=== PATIENT | male | born 1960 | race Caucasian/White ===

== ENCOUNTER → 2016-06-09 | Outpatient (CLI) | payer BC ==
[~2016-06-09] VITALS: Ht 180.3 cm; Wt 108.9 kg
[~2016-06-09] MED LIST: ATEN50TA9 PO; LIDOCAINE 2% INJ 100 MG/5 ML SDV (FOR ANES.) As Ordered ONE; LOTR10CA PO; NS 1,000 ML IV SCH; PROPOFOL 200 MG/20 ML VIAL As Ordered ONE; VIAG100T PO
--- NOTE | 2016-06-09 11:16 | ROOR ---
Patient Name: Giovanni Lei Procedure Date: 06/09/2016 10:47 AM Date of : 1960 Age: 55 Room: OPP Gender: Male Note Status: Finalized Procedure: Colonoscopy Indications: High risk colon cancer surveillance: Personal history of colonic polyps, Family history of colon cancer in a first-degree relative (Brother age 48) Providers: Gabino RODRIGUEZ MD Referring MD: MENDOZA ARROYO MD Requesting Provider: Medicines: Monitored Anesthesia Care Complications: No immediate complications. Procedure: Pre-Anesthesia Assessment: - The heart rate, respiratory rate, oxygen saturations, blood pressure, adequacy of pulmonary ventilation, and response to care were monitored throughout the procedure. The Colonoscope was introduced through the anus and advanced to the cecum, identified by appendiceal orifice and ileocecal valve. The colonoscopy was performed without difficulty. The patient tolerated the procedure well. The quality of the bowel preparation was good. Findings: The perianal and digital rectal examinations were normal. (Digital prostate exam was normal, smooth prostate. No nodularity or firmness apreciated.) (Exam: Complete, Prep: Good or Excellent.) A 7 mm polyp was found in the sigmoid colon at 40 cm from verge. The polyp was semi-sessile. The polyp was removed with a hot snare. Resection and retrieval were complete. The exam was otherwise normal throughout the examined colon. Impression: - (Digital prostate exam was normal, smooth prostate. No nodularity or firmness apreciated.) - (Exam: Complete, Prep: Good or Excellent.) - One 7 mm polyp in the sigmoid colon, removed with a hot snare. Resected and retrieved. - The exam was otherwise normal to the cecum. Recommendation: - No ibuprofen, naproxen, or other non-steroidal anti-inflammatory drugs for 10 days after polyp removal. - Repeat colonoscopy in 3 years for surveillance. - Telephone endoscopist for pathology results in 2 weeks. Gabino Rodriguez MD Gabino RODRIGUEZ MD 06/09/2016 11:15:49 AM This report has been signed electronically. Number of Addenda: 0 Note Initiated On: 06/09/2016 10:47 AM Estimated Blood Loss: Estimated blood loss: none.
[2016-06-09 11:30] VITALS: BP 126/76
== END ==
LOC: M OPP 09:17
PROVIDERS: ATTEND Internal Medicine Gastroenterology
DX: Z12.11 Encounter for screening for malignant neoplasm of colon (principal); D12.5 Benign neoplasm of sigmoid colon; Z86.010 Personal history of colon polyps; I10 Essential (primary) hypertension; E78.5 Hyperlipidemia, unspecified; G47.30 Sleep apnea, unspecified; R06.83 Snoring; Z80.0 Family history of malignant neoplasm of digestive organs; Z80.3 Family history of malignant neoplasm of breast; Z80.1 Family history of malignant neoplasm of trachea, bronchus and lung; F17.220 Nicotine dependence, chewing tobacco, uncomplicated; Z79.899 Other long term (current) drug therapy

== ENCOUNTER → 2018-12-27 | Outpatient (CLI) | payer BC ==
[~2018-12-27] MED LIST changes: -LIDOCAINE 2% INJ 100 MG/5 ML SDV (FOR ANES.) As Ordered ONE; -NS 1,000 ML IV SCH; -PROPOFOL 200 MG/20 ML VIAL As Ordered ONE
--- NOTE | 2018-12-27 08:48 | ECGEPIP ---
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
== END ==
LOC: M EKG 08:17
PROVIDERS: ATTEND Orthopaedic Surgery
DX: Z01.810 Encounter for preprocedural cardiovascular examination (principal); M23.204 Derangement of unspecified medial meniscus due to old tear or injury, left knee

== ENCOUNTER → 2019-09-06 | Outpatient (CLI) | payer BC ==
[2019-09-06 09:39] LABS: HEMOGLOBIN 16.8 g/dl (13.5-17.5); MEAN CORPUSCULAR HEMOGLOBIN 35.4 pg (27.0-33.0); MEAN CORPUSCULAR VOLUME 101.1 fl (80.0-96.0); PLATELET COUNT, AUTOMATED 264 10^3/uL (150-450); RED BLOOD COUNT 4.75 10^6/uL (4.30-6.10); WHITE BLOOD COUNT 6.2 10^3/uL (4.0-10.0)
[2019-09-06 09:51] LABS: INR 1.03; PROTHROMBIN TIME 13.2 SECONDS (11.8-14.0)
[2019-09-06 10:19] LABS: ALBUMIN 3.6 GM/DL (3.2-5.2); ALT/SGPT 36 U/L (12-78); BILIRUBIN,TOTAL 0.7 MG/DL (0.2-1.0); BLOOD UREA NITROGEN 16 MG/DL (7-18); CALCIUM LEVEL 9.1 MG/DL (8.5-10.1); CARBON DIOXIDE LEVEL 30 MEQ/L (21-32); CHLORIDE LEVEL 100 MEQ/L (98-107); CREATININE FOR GFR 1.04 MG/DL (0.70-1.30); GLOMERULAR FILTRATION RATE > 60.0 (>56); GLUCOSE, FASTING 93 MG/DL (70-100); POTASSIUM SERUM 4.3 MEQ/L (3.5-5.1); SODIUM LEVEL 136 MEQ/L (136-145); TOTAL PROTEIN 7.4 GM/DL (6.4-8.2)
[2019-09-06 10:31] LABS: ERYTHROCYTE SEDIMENTATION RATE 11 mm/hr (0-20)
--- NOTE | 2019-09-06 10:32 | ECGEPIP ---
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 No significant change compared with 12/27/2018. Electronically Signed on 09-06-2019 10:31:36 EDT by Gabino Vera
--- NOTE | 2019-09-06 11:41 | REP ---
REASON: Preoperative evaluation. Latest prior for comparison is 07/28/2008 Multiple healed left-sided rib fractures are noted. There is left CP angle blunting which has developed since the last exam. The lung kenyon are otherwise clear and the heart is not enlarged. IMPRESSION: New left CP angle blunting. Etiology uncertain. CT chest recommended. Electronically Signed by Nino Pantoja DO 09/06/2019 12:12 P
== END ==
LOC: M LAB 08:45
PROVIDERS: ATTEND Orthopaedic Surgery
DX: M16.12 Unilateral primary osteoarthritis, left hip (principal)

== ENCOUNTER → 2019-10-18 | Outpatient (CLI) | payer BC ==
[~2019-10-18] MED LIST changes: +ACET-683 PO; +PERC5TAB12 PO; +XARE10TA PO
== END ==
LOC: M LABSMTC 11:04
PROVIDERS: ATTEND Anesthesiology
DX: Z01.818 Encounter for other preprocedural examination (principal); Z11.59 Encounter for screening for other viral diseases
CPT/HCPCS: C9803; U0003

== ENCOUNTER 2019-10-21 06:05 | Inpatient (IN) | payer BC ==
[2019-10-21] VITALS (7 sets, daily range): BP systolic 98–112; BP diastolic 57–69
[~2019-10-21] VITALS: Ht 180.3 cm; Wt 101.6 kg
[~2019-10-21 06:05] MED LIST changes: +LIDOCAINE 1% MDV 20ML VIAL SQ PRN; +LR 1,000 ML IV ONE; -PERC5TAB12 PO; -XARE10TA PO; +ceFAZolin SOD 2 GM in IV 1 EA IV ONE
[2019-10-21] MEDS ORDERED: ceFAZolin 1GM VIAL (J0690 PER 500MG) As Ordered ONE (07:20)
[2019-10-21] MEDS ORDERED: TRANEXAMIC ACID 100 MG/ML 10ML VIAL As Ordered ONE (07:20)
[2019-10-21] MEDS ORDERED: EPINEPHrine INJ 1 MG/ML 1ML AMP As Ordered ONE (07:21)
[2019-10-21] MEDS ORDERED: LIDOCAINE 2% INJ 100 MG/5 ML SYRINGE As Ordered ONE (07:21)
[2019-10-21] MEDS ORDERED: BUPIVACAINE LIPOSOME/PF 1.3% 20ML VIAL (13.3MG/ML)(EXPAREL)(C9290 PER1MG) As Ordered ONE (07:21)
[2019-10-21] MEDS ORDERED: MIDAZOLAM INJ 2MG/2ML VIAL (J2250 PER 1MG) As Ordered ONE ×3 (07:22→08:19)
[2019-10-21] MEDS ORDERED: fentaNYL 100 MCG/2 ML INJECTION (J3010) As Ordered ONE (07:22)
[2019-10-21] MEDS ORDERED: propofoL 200 MG/20 ML VIAL As Ordered ONE (08:05)
[2019-10-21] MEDS ORDERED: KETAMINE HCL 200 MG/20 ML VIAL As Ordered ONE (08:12)
[2019-10-21] MEDS ORDERED: ACETAMINOPHEN 1000MG 100ML IV BTL (OFIRMEV) (J0131 PER 10MG) As Ordered ONE (08:33)
[2019-10-21] MEDS ORDERED: PHENYLephrine HCL 500 MCG/5 ML (100MCG/ML) SYRINGE (J2370) As Ordered ONE (08:37)
[2019-10-21] MEDS ORDERED: ePHEDrine SULFATE 25 MG/5 ML(5MG/ML) SYRINGE As Ordered ONE (08:37)
[2019-10-21] MEDS ORDERED: ONDANSETRON 4MG/2ML VIAL As Ordered ONE (08:56)
[2019-10-21] MEDS ORDERED: ONDANSETRON 4MG/2ML VIAL IV PRN ×2 (10:00)
[2019-10-21] MEDS ORDERED: PERCOCET 5MG/325MG TAB PO PRN ×3 (10:00→16:30)
[2019-10-21] MEDS ORDERED: METOCLOPRAMIDE INJ 10MG/2ML VIAL (J2765 PER 1) IV PRN (10:00)
[2019-10-21] MEDS ORDERED: MORPHINE 2 MG/ML 1ML VIAL (J2270) IV PRN (10:00)
[2019-10-21] MEDS ORDERED: ACETAMINOPHEN TAB 650MG DOSE (2X325MG) PO PRN (10:00)
[2019-10-21] MEDS: LR 1,000 ML IV SCH (10:00)
[2019-10-21] MEDS ORDERED: fentaNYL 100 MCG/2 ML INJECTION (J3010) IV PRN (10:00)
[2019-10-21] MEDS ORDERED: MORPHINE 4 MG/ML 1ML VIAL/SYRINGE (J2270) IV PRN (10:00)
[2019-10-21] MEDS ORDERED: LR 1,000 ML IV SCH (10:00)
--- NOTE | 2019-10-21 11:12 | REP ---
LEFT HIP, THREE VIEWS: Three views of the left hip performed. Left hip prosthesis appears to be in good position. Osseous structures are intact and well aligned. Electronically Signed by Stepan Pope MD 10/22/2019 12:58 P
--- NOTE | 2019-10-21 11:46 | IPN ---
DATE: 10/21/2019 Patient seen and examined. He wishes to proceed with a left hip arthroplasty. He understands the nature of this, the risks of bleeding, infection, damage to nerves, vessels, persistent pain, wear loosening, dislocation, leg length inequality, blood clots, medical problems, , among others. A preop clearance was obtained.
[2019-10-21] MEDS ORDERED: NS 500 ML IV ONE (13:45)
[2019-10-21] MEDS ORDERED: MORPHINE 4 MG/ML 1ML VIAL/SYRINGE (J2270) IV ONE (13:45)
[2019-10-21] MEDS ORDERED: KETOROLAC 30 MG/ML 1ML VIAL IV ONE (14:45)
[2019-10-21] MEDS: ceFAZolin SOD 2 GM in IV 1 EA IV SCH (16:23)
[2019-10-21] MEDS: PERCOCET 5MG/325MG TAB PO PRN (19:04)
--- NOTE | 2019-10-21 21:28 | CR ---
DATE OF CONSULTATION: 10/21/2019 REFERRING PHYSICIAN: Reid Delvin MD REASON FOR CONSULTATION: Management of chronic medical problems. Left hip osteoarthritis. HISTORY OF PRESENTING ILLNESS: This is a 59-year-old male with history of hypertension status post left hip arthroplasty without postoperative complications admitted to [address] [place] [address]. Patient complains of 10/10 pain despite receiving two tablets of Percocet, described as sharp without any radiation. Patient otherwise denied any fever, chills, shortness of breath, chest pain, pressure, tightness, lightheadedness, near syncope, dysuria, urgency, frequency, changes in vision, rhinorrhea. Per nursing, patient has had no other issues since arriving on the floor. PAST MEDICAL HISTORY: Hypertension. PAST SURGICAL HISTORY: Hernia repair, left knee arthroscopy 2018, shoulder surgery 2009, left hip open reduction internal fixation (ORIF) 10/2019. HOME MEDICATIONS: - Lotrel 10/20 mg one tablet daily - atenolol/chlorthalidone 50/25 one tablet daily - Viagra 100 mg as needed ALLERGIES: No known drug allergies. HOSPITAL MEDICATIONS: - Xarelto 10 mg daily - cephazolin 2 grams IV every 8 hours - Lactated Ringers (LR) 70 mL/hour - morphine 2 mg IV every 2 hours as needed for pain 4 to 7/10, 3 mg IV every 2 hours as needed for pain 8 to 10/10 - Percocet two tablets every 6 hours as needed - Zofran 4 mg IV every 6 hours as needed - acetaminophen 650 every 4 hours as needed for pain of 1 to 4/10 SOCIAL HISTORY: Patient is a nonsmoker, drinks about four beers a week. He is . 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 FAMILY HISTORY: Father with coronary artery disease (CAD), osteoarthritis, hypertension. Mother with hypertension. REVIEW OF SYSTEMS: Per history of present illness (HPI). 12-point system otherwise negative. PHYSICAL EXAMINATION: Temperature 97.5, pulse 57, respiratory rate 15, blood pressure 107/64, 100% on room air. Generally: Patient is awake, alert, oriented to person, place, and time, answering questions appropriately. He appears distressed due to severe pain, otherwise no pallor or cyanosis. No use of respiratory accessory muscles. No jugular venous distention (JVD) or thyromegaly. Lungs: Clear to auscultation. No wheezing, rales, or rhonchi. Heart: S1, S2, sinus rhythm. No murmurs, rubs, or gallops. Abdomen: Soft, nontender, nondistended. Positive bowel sounds. Extremities: Postoperative left hip with dressing intact. Skin: Warm, dry, well-perfused, pink in color. Patient has no changes in sensation. Limited range of motion of left lower extremity due to severe pain. LABORATORY DATA: 09/06/2019 CBC and metabolic panel have been reviewed. ASSESSMENT AND PLAN: This is a 59-year-old male with history of hypertension: 1. Status post left hip open reduction internal fixation (ORIF) due to severe osteoarthritis currently on Xarelto for deep venous thrombosis (DVT) prophylaxis. Blood pressure medications have not been resumed due to persistent low blood pressure with systolic pressure of 98-109 systolic. Patient is currently on IV morphine as needed for breakthrough pain and oral Percocet two tablets managed by orthopaedic surgery. On bowel regimen as well and deep venous thrombosis (DVT) prophylaxis. 2. Hypertension. Currently with low blood pressure. Will not resume patient's blood pressure medications. MTDD
[2019-10-22] MEDS: LR 1,000 ML IV SCH (00:18)
[2019-10-22] MEDS: ceFAZolin SOD 2 GM in IV 1 EA IV SCH (00:26)
[2019-10-22] MEDS: PERCOCET 5MG/325MG TAB PO PRN ×3 (00:27→12:15)
[2019-10-22 02:05] VITALS: BP 101/57
[2019-10-22 05:44] VITALS: BP 107/61
[2019-10-22] MEDS ORDERED: XARE10TA PO (06:42)
[2019-10-22] MEDS ORDERED: PERC5TAB12 PO (06:42)
[2019-10-22 09:00] VITALS: O2SAT 94
[2019-10-22] MEDS ORDERED: MOM 30ML SUSPENSION UDC PO SCH (09:00)
[2019-10-22] MEDS ORDERED: MIRALAX *UNIT DOSE* 17GM PACKET PO SCH (09:00)
[2019-10-22 10:00] VITALS: BP 119/70
[2019-10-22 11:44] VITALS: O2SAT 96
[2019-10-22] MEDS ORDERED: RIVAROXABAN 10 MG TAB (XARELTO) PO SCH (18:00)
== END 2019-10-22 12:25 | disposition home or self-care (01) | DRG 301 ==
LOC: M OR 06:05 → M MS5PR 11:00
PROVIDERS: ADMIT Orthopaedic Surgery; ATTEND Orthopaedic Surgery
PROC: 0SRB0J9 Replacement of Left Hip Joint with Synthetic Substitute, Cemented, Open Approach (ICD-10-PCS; principal; 2019-10-21 07:30)
DX: M16.12 Unilateral primary osteoarthritis, left hip (principal); I10 Essential (primary) hypertension; Z79.899 Other long term (current) drug therapy

== ENCOUNTER → 2020-04-18 | Outpatient (CLI) | payer BC ==
[~2020-04-18] MED LIST changes: -LIDOCAINE 1% MDV 20ML VIAL SQ PRN; -LR 1,000 ML IV ONE; +PERC5TAB12 PO; +XARE10TA PO; -ceFAZolin SOD 2 GM in IV 1 EA IV ONE
== END ==
LOC: M LABSMTC 08:22
PROVIDERS: ATTEND Anesthesiology
DX: Z01.812 Encounter for preprocedural laboratory examination (principal); Z20.828 Contact with and (suspected) exposure to other viral communicable diseases

== ENCOUNTER 2020-04-21 08:59 | Day surgery (SDC) | payer BC ==
[~2020-04-21] VITALS: Ht 180.3 cm; Wt 107.5 kg
[~2020-04-21 08:59] MED LIST changes: +NS 1,000 ML IV ONE
[2020-04-21] MEDS ORDERED: LIDOCAINE 2% 100MG/5ML SDV (FOR ANES.) As Ordered ONE (09:27)
[2020-04-21] MEDS ORDERED: propofoL 200 MG/20 ML VIAL As Ordered ONE (09:27)
[2020-04-21] MEDS ORDERED: MIDAZOLAM INJ 2MG/2ML VIAL (J2250 PER 1MG) As Ordered ONE (10:09)
[2020-04-21] MEDS ORDERED: fentaNYL 100 MCG/2 ML INJECTION (J3010) As Ordered ONE (10:38)
--- NOTE | 2020-04-21 10:50 | ROOR ---
Patient Name: Giovanni Lei Procedure Date: 04/21/2020 10:21 AM Date of : 1960 Age: 59 Room: [facility] Gender: Male Note Status: Finalized Procedure: Colonoscopy Indications: High risk colon cancer surveillance: Personal history of colonic polyps, Last colonoscopy: May 2016 Providers: Gabino RODRIGUEZ MD Referring MD: MENDOZA ARROYO MD Requesting Provider: Medicines: Monitored Anesthesia Care Complications: No immediate complications. Procedure: Pre-Anesthesia Assessment: - The heart rate, respiratory rate, oxygen saturations, blood pressure, adequacy of pulmonary ventilation, and response to care were monitored throughout the procedure. The Colonoscope was introduced through the anus and advanced to the cecum, identified by appendiceal orifice and ileocecal valve. The colonoscopy was performed without difficulty. The patient tolerated the procedure well. The quality of the bowel preparation was good. Findings: The perianal and digital rectal examinations were normal. The digital rectal exam was normal. Pertinent negatives include normal prostate (size, shape, and consistency). A 8 mm polyp was found in the rectum. The polyp was semi-sessile. The polyp was removed with a piecemeal technique using a cold snare. Resection and retrieval were complete. A 5 mm polyp was found in the splenic flexure. The polyp was sessile. The polyp was removed with a cold snare. Resection and retrieval were complete. Internal hemorrhoids were found during retroflexion. The exam was otherwise without abnormality on direct and retroflexion views. Impression: - One 8 mm polyp in the mid rectum (at 6 cm from verge), removed piecemeal using a cold snare. Resected and retrieved. - One 5 mm polyp at the splenic flexure, removed with a cold snare. Resected and retrieved. - Internal hemorrhoids. - The examination was otherwise normal on direct and retroflexion views. - The digital rectal exam was normal. Pertinent negatives include normal prostate (size, shape, and consistency). Recommendation: - Telephone endoscopist for pathology results in 2 weeks. - Repeat colonoscopy in 3 - 5 years for surveillance based on pathology results. Procedure Code(s): --- Professional --- 12630, Colonoscopy, flexible; with removal of tumor(s), polyp(s), or other lesion(s) by snare technique Diagnosis Code(s): --- Professional --- Z86.010, Personal history of colonic polyps K62.1, Rectal polyp K63.5, Polyp of colon K64.8, Other hemorrhoids CPT copyright 2019 [employer]. All rights reserved. The codes documented in this report are preliminary and upon slice plug cutter operator helper review may be revised to meet current compliance requirements. Gabino Rodriguez MD Gabino RODRIGUEZ MD 04/21/2020 10:49:47 AM Electronically signed by Gabino RODRIGUEZ MD Number of Addenda: 0 Note Initiated On: 04/21/2020 10:21 AM Estimated Blood Loss: Estimated blood loss: none.
[2020-04-21 11:10] VITALS: BP 129/75
== END 2020-04-21 11:25 | disposition home or self-care (01) ==
LOC: M OPP 08:59
PROVIDERS: ATTEND Internal Medicine Gastroenterology
DX: Z12.11 Encounter for screening for malignant neoplasm of colon (principal); Z86.010 Personal history of colon polyps; Z80.0 Family history of malignant neoplasm of digestive organs; K62.1 Rectal polyp; D12.3 Benign neoplasm of transverse colon; K64.8 Other hemorrhoids; F17.220 Nicotine dependence, chewing tobacco, uncomplicated; Z79.899 Other long term (current) drug therapy
CPT/HCPCS: 45385; 88305; J2250; J3010

== ENCOUNTER → 2020-10-30 | Outpatient (CLI) | payer BC ==
[~2020-10-30] MED LIST changes: -NS 1,000 ML IV ONE
[2020-10-30 19:40] LABS: BASO # 0.1 10^3/uL (0.0-0.2); BASO % 0.8 % (0.0-1.0); EOS # 0.2 10^3/uL (0.0-0.5); EOS % 2.8 % (0.0-3.0); HEMATOCRIT 55.1 % (42.0-52.0); HEMOGLOBIN 19.2 g/dl (13.5-17.5); LYMPH # 1.6 10^3/uL (1.5-5.0); LYMPH % 25.5 % (24.0-44.0); MEAN CORPUSCULAR HEMOGLOBIN 35.9 pg (27.0-33.0); MEAN CORPUSCULAR HGB CONC 34.8 g/dl (32.0-36.5); MONO # 0.8 10^3/uL (0.0-0.8); MONO % 12.2 % (2.0-8.0); NEUTROPHILS # 3.7 10^3/uL (1.5-8.5); NEUTROPHILS % 58.4 % (36.0-66.0); PLATELET COUNT, AUTOMATED 245 10^3/uL (150-450); RED BLOOD COUNT 5.35 10^6/uL (4.30-6.10); WHITE BLOOD COUNT 6.4 10^3/uL (4.0-10.0)
[2020-10-30 19:53] LABS: ALBUMIN 3.6 GM/DL (3.2-5.2); ALT/SGPT 28 U/L (12-78); BLOOD UREA NITROGEN 7 MG/DL (7-18); CALCIUM LEVEL 9.2 MG/DL (8.5-10.1); CARBON DIOXIDE LEVEL 25 MEQ/L (21-32); CHLORIDE LEVEL 99 MEQ/L (98-107); CREATININE FOR GFR 1.03 MG/DL (0.70-1.30); GLOMERULAR FILTRATION RATE > 60.0 (>56); GLUCOSE, FASTING 80 MG/DL (70-100); NT-PRO BNP 153 PG/ML (<125); POTASSIUM SERUM 3.9 MEQ/L (3.5-5.1); SODIUM LEVEL 135 MEQ/L (136-145); TOTAL PROTEIN 7.4 GM/DL (6.4-8.2)
== END ==
LOC: M WUC 14:58
PROVIDERS: ATTEND Internal Medicine
DX: R06.02 Shortness of breath (principal); I10 Essential (primary) hypertension

== ENCOUNTER → 2020-12-07 | Outpatient (CLI) | payer BC ==
[~2020-12-07] MED LIST changes: +ATEN25TA PO; +LASI20TA3 PO
--- NOTE | 2020-12-07 10:05 | REP ---
INDICATION: ERYTHROCYTOSIS, EVAL FOR HEPATO/SPLENOMEGALY. COMPARISON: None. TECHNIQUE: Real-time sonographic evaluation of ABDOMEN performed. FINDINGS: The gallbladder demonstrates no evidence of intraluminal sludge or calculi, wall thickening or pericholecystic fluid. There is no intrahepatic or extrahepatic biliary dilatation, common bile duct measures 4 mm in maximum diameter. The liver demonstrates homogeneous echotexture with no gross mass. Pancreas is not visualized due to overlying bowel gas. Spleen is normal in size with no intrinsic abnormality, measuring 9.1 cm in length. There is no evidence of hydronephrosis, cyst, mass, or calculus in either kidney. The right kidney measures 11.7 x 5.9 x 4.7 cm. Left renal dimensions are 10.9 x 5.3 x 6.7 cm. No free fluid is seen. IMPRESSION: Negative abdominal ultrasound. Pancreas is not visualized due to overlying bowel gas. <Electronically signed by Stepan Pope > 12/07/20 1002
== END ==
LOC: M RAD 08:27
PROVIDERS: ATTEND Internal Medicine Medical Oncology
DX: D75.1 Secondary polycythemia (principal)

== ENCOUNTER → 2021-03-11 | Outpatient (CLI) | payer BC ==
--- NOTE | 2021-03-15 20:10 | SLEEPHOME ---
DATE: 03/11/2021 HOME SLEEP TEST ORDERED BY: RAYA Covarrubias Diagnostic home sleep testing was performed due to concern for the obstructive sleep apnea syndrome. For testing, a nocturnal T3 respiratory monitoring device was used. Continuous record was made of pulse, oxygen saturation, air flow, chest and abdominal strain, and body position. Eleven hours and 59 minutes of data were reviewed. There were 10 hours and 45 minutes marked as time in bed. During the interval marked time in bed, there were 921 respiratory events identified of 10 seconds in duration or greater for a respiratory event index of 85.6. The events were primarily obstructive. However, 103 mixed and central apneas were also seen. Baseline pulse rate was 74. Pulse rate ranged 52 to 106. Baseline saturation was 87%. Saturations fell to 60%. Testing was performed in both the supine and nonsupine positions. IMPRESSION: Abnormal home sleep testing with repetitive respiratory events and oxygen desaturations to 60% with a respiratory event index of 85.6 is consistent with the obstructive sleep apnea syndrome. RECOMMENDATION: The patient should be encouraged to undergo a formal sleep evaluation. cc: Del Cook
== END ==
LOC: M SLEEP HO 14:09
PROVIDERS: ATTEND Nurse Practitioner Family
DX: R06.83 Snoring (principal)

== ENCOUNTER → 2021-04-20 | Outpatient (CLI) | payer BC | LOC: M SLEEP 20:00 | PROVIDERS: ATTEND Nurse Practitioner Family | DX: G47.33 Obstructive sleep apnea (adult) (pediatric) (principal) ==

== ENCOUNTER → 2022-11-07 | Outpatient (REF) | LOC: M PLAIMG 13:52 | PROVIDERS: ATTEND Internal Medicine | DX: M19.041 Primary osteoarthritis, right hand (principal); M19.011 Primary osteoarthritis, right shoulder ==

== ENCOUNTER 2024-04-11 06:39 | Day surgery (SDC) | payer OTHER ==
[~2024-04-11] VITALS: Ht 180.3 cm; Wt 98.8 kg
[~2024-04-11 06:39] MED LIST changes: +NS 250 ML IV ONE
[2024-04-11] MEDS ORDERED: propofoL 200 MG/20 ML VIAL As Ordered ONE (07:27)
[2024-04-11] MEDS ORDERED: LIDOCAINE 2% 100MG/5ML SDV (FOR ANES.) As Ordered ONE (07:27)
[2024-04-11 07:53] VITALS: TEMP 98.3
[2024-04-11 08:08] VITALS: BP 141/80; O2SAT 97
== END 2024-04-11 08:18 | disposition home or self-care (01) ==
LOC: M OPP 06:39
PROVIDERS: ATTEND Internal Medicine Gastroenterology
DX: Z12.11 Encounter for screening for malignant neoplasm of colon (principal); D12.4 Benign neoplasm of descending colon; Z80.0 Family history of malignant neoplasm of digestive organs; K64.8 Other hemorrhoids; Z86.0100 Personal history of colon polyps, unspecified; Z87.19 Personal history of other diseases of the digestive system; Z90.49 Acquired absence of other specified parts of digestive tract; I10 Essential (primary) hypertension; G47.30 Sleep apnea, unspecified; Z79.899 Other long term (current) drug therapy; F17.220 Nicotine dependence, chewing tobacco, uncomplicated